=== PATIENT | male | born 1950 | race Caucasian/White ===

== ENCOUNTER 2024-09-09 06:57 | Emergency (ER) | payer OTHER, SELFPAY ==
[2024-09-09 07:00] VITALS: BP 113/60
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
[2024-09-09 09:31] VITALS: BP 108/66; BMI 25.6
--- NOTE | 2024-09-09 09:43 | EDRN ---
Dr. Olson in to see pt. Pt declined any pain medication at this time.
== END 2024-09-09 09:55 | disposition home or self-care (01) ==
LOC: EMR 06:57
PROVIDERS: EMERGENCY PHYSICIAN Emergency Medicine; FAMILY PHYSICIAN Internal Medicine
DX: S13.4XXA Sprain of ligaments of cervical spine, initial encounter (principal); S99.911A Unspecified injury of right ankle, initial encounter; M54.2 Cervicalgia; M25.562 Pain in left knee; M54.6 Pain in thoracic spine; V49.9XXA Car occupant (driver) (passenger) injured in unspecified traffic accident, initial encounter; E78.00 Pure hypercholesterolemia, unspecified; Z86.73 Personal history of transient ischemic attack (TIA), and cerebral infarction without residual deficits
CPT/HCPCS: 99284; 71046; 72125; 73130; 73564; 73610